=== PATIENT | female | born 1965 | race Caucasian/White ===

== ENCOUNTER 2017-01-05 11:43 | Emergency (ER) | payer OTHER, BC ==
[~2017-01-05 11:43] MED LIST: HYDR-971 PO; IBUP800T PO
[2017-01-05 11:50] VITALS: BP 162/105
[2017-01-05] MEDS ORDERED: CIPR500T94 PO (12:10)
[2017-01-05] MEDS ORDERED: HYDR-965 PO (12:10)
--- NOTE | 2017-01-05 12:13 | PHYS DOC ---
General Chief Complaint: ABDOMINAL PAIN Stated Complaint: abdominal pain Time Seen by MD: 11:44 Source: patient Exam Limitations: no limitations Problems: History of Present Illness Initial Comments Pt is 51/F to ED c/o abdominal pain. Pt states past few days left lower abdominal discomfort and loose stools. Has h /o diverticulitis, feels this is recurrance as sx are similar. No n/v, no travel/bad food, OTC meds not helping. No blood noted, no fever/chills/ malaise. Appetite intact. Timing/Duration: 1 week Severity: moderate Modifying Factors: improves with other Associated Symptoms: other Allergies: Coded Allergies: metronidazole (Verified Allergy, Intermediate, gi, 10/05/16) Past Medical History Medical History: other (diverticulitis, HSV, GERD, HTN) Surgical History: cholecystectomy, other (hysterectomy, TL) Social History Smoker: non-smoker Alcohol: none Drugs: none Review of Systems Constitutional: denies chills, denies diaphoresis, denies fever, denies malaise Respiratory: denies cough, denies shortness of breath Cardiovascular: denies chest pain, denies palpitations Gastrointestinal: abdominal paindenies constipation, diarrheadenies nausea, denies vomiting Genitourinary: see HPIdenies hematuria Musculoskeletal: denies joint swelling Psychiatric/Neurological: denies headache, denies numbness, denies paresthesia Physical Exam General Appearance: WD/WN, no apparent distress Ear, Nose, Throat: hearing grossly normal, normal ENT inspection Neck: non-tender, supple Respiratory: normal breath sounds, no respiratory distress Cardiovascular: normal peripheral pulses, regular rate, rhythm Gastrointestinal: normal bowel sounds, soft (ND, mild LLQ TTP no r/g/mass, neg mcburney/robles) Rectal: deferred Back: no CVA tenderness, no vertebral tenderness Extremities: non-tender, normal inspection 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 Departure Time of Disposition: 12:11 Disposition: 01 HOME, SELF-CARE Diagnosis: diverticulitis Condition: GOOD Patient Instructions: Diverticulitis, [id number] Additional Instructions: Please review the patient education material given by ED staff. Aggressive hydration with gatorade, water. Off work today/tomorrow. Rest, no strenuous activity. Rx: jonathan aguayo 7.5 #30 take meds with food. Follow up with your doctor in 2-3 days if no improvement. Return to ED with new or changing symptoms. TROY POSADA DO Jan 05, 2017 12:13
[2017-01-05] MEDS ORDERED: CIPROFLOXACIN HCL 500 MG TABLET PO ONE (12:15)
[2017-01-05 12:27] LABS: BILIRUBIN,URINE NEG (NEG); CLARITY,URINE CLEAR; COLOR,URINE YELLOW; GLUCOSE,URINE NEG (NEG)
[2017-01-05 12:28] LABS: BACTERIA,URINE FEW /HPF (0-FEW); NITRITE,URINE NEG (NEG); RBC,URINE 0 /HPF (0-2); SQUAMOUS EPITHELIAL CELL,UR MOD /LPF; UROBILINOGEN,URINE 0.2 mg/dL (0.2 mg/dL); WBC,URINE OCC /HPF (0-4)
== END 2017-01-05 12:20 ==
LOC: ER 11:43
DX: K57.92 Diverticulitis of intestine, part unspecified, without perforation or abscess without bleeding (principal); I10 Essential (primary) hypertension; K21.9 Gastro-esophageal reflux disease without esophagitis; Z90.49 Acquired absence of other specified parts of digestive tract; Z98.51 Tubal ligation status; Z88.8 Allergy status to other drugs, medicaments and biological substances
CPT/HCPCS: 81001; 99283

== ENCOUNTER → 2017-12-12 | Outpatient (CLI) | payer BC, OTHER ==
[~2017-12-12] MED LIST changes: +CIPR500T94 PO; +HYDR-965 PO; -IBUP800T PO; +IBUP800T19 PO
--- NOTE | 2017-12-12 11:34 | RAD ---
Indication: Postmenopausal. Hormone use. Technique: Bone mineral density DEXA scan Comparison: None Findings: The bone mineral density from L1-L4 measures 1.395 g/sq cm with T score of 1.8. Bone mineral density in the right femoral neck measures 0.997 g/sq cm with T score of -0.3. Impression: Normal bone mineral density at all measured sites.
--- NOTE | 2017-12-13 16:33 | RAD ---
DATE: 12/12/2017 EXAM: MAMMO JENNIE SCREENING BILATERAL HISTORY: Routine screening COMPARISON: 07/05/2016 This study was interpreted with the benefit of Computerized Aided Detection (CAD). The breast parenchyma shows scattered fibroglandular densities. Breast parenchyma level B. FINDINGS: 2-D and 3-D tomosynthesis imaging was performed in CC and MLO projections. No new or enlarging breast densities are seen. Several benign type calcifications are noted. No suspicious microcalcifications have developed. Benign-appearing lymph node type densities are again noted in the axillary regions. IMPRESSION: Stable mammograms without evidence of malignancy. BI-RADS CATEGORY: 2 BENIGN FINDING(S) RECOMMENDED FOLLOW-UP: 12M 12 MONTH FOLLOW-UP PQRS compliance statement: Patient information was entered into a reminder system with a target due date for the next mammogram. Mammography is a sensitive method for finding small breast cancers, but it does not detect them all and is not a substitute for careful clinical examination. A negative mammogram does not negate a clinically suspicious finding and should not result in delay in biopsying a clinically suspicious abnormality. "Our facility is accredited by the [employer] Mammography Program."
== END | disposition home or self-care (01) ==
LOC: DXRAD 10:19
PROVIDERS: ATTEND Obstetrics & Gynecology
DX: Z12.31 Encounter for screening mammogram for malignant neoplasm of breast (principal); Z13.820 Encounter for screening for osteoporosis; Z78.0 Asymptomatic menopausal state
CPT/HCPCS: 77063; 77067; 77080

== ENCOUNTER 2018-01-07 17:12 | Emergency (ER) | payer OTHER ==
[~2018-01-07] VITALS: Ht 160 cm; Wt 79.4 kg
--- NOTE | 2018-01-07 17:21 | EKG ---
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
[2018-01-07] MEDS ORDERED: MECLIZINE 12.5 MG TABLET. PO PRN (17:30)
--- NOTE | 2018-01-07 17:39 | PHYS DOC ---
Past History Past Medical History: GERD, Hypertension Past Surgical History: Cholecystectomy, Hysterectomy, Tubal ligation Alcohol Use: None Drug Use: None Adult General Chief Complaint Chief Complaint: CHEST PAIN [facility] HPI 52-year-old female patient with history of hypertension and GERD complaining of intermittent episodes of left-sided squeezing chest pain for the last 2 month that usually happens several times a day without sedation to activity. Patient stated the pain radiated to left shoulder and sometimes associated with shortness of breath. Patient rated her pain 7/10 and states the pain lasts about 2 minutes. She complaining of numbness her left hand during episodes of chest pain without palpitation, nausea and vomiting, fever and chills. Patient state for the last 1 week she had intermittent episodes of dizziness without related to activity or position. Patient denies fever and chills, URI symptoms, change of hearing, blurred vision. Patient states she has had intermittent episodes of headache for the last 1 week. Patient had some history of coronary artery disease and denies smoking and dyslipidemia and diabetes and history of previous coronary artery disease. Patient denies any chest pain at this time. Review of Systems Review of Systems Constitutional: Denies fever or chills [] Eyes: Denies change in visual acuity, redness, or eye pain [] HENT: Denies nasal congestion or sore throat [] Respiratory: Denies cough or shortness of breath [] Cardiovascular: No additional information not addressed in HPI [] GI: Denies abdominal pain, nausea, vomiting, bloody stools or diarrhea [] : Denies dysuria or hematuria [] Musculoskeletal: Denies back pain or joint pain [] Integument: Denies rash or skin lesions [] Neurologic: Reports headache and dizziness, denies focal weakness Endocrine: Denies polyuria or polydipsia [] All other systems were reviewed and found to be within normal limits, except as documented in this note. Allergies Allergies Allergies Coded Allergies Type Severity Reaction Last Updated Verified metronidazole Allergy Intermediate gi 10/05/16 Yes Physical Exam Physical Exam Constitutional: Well developed, well nourished, mild distress, non-toxic appearance. [] HENT: Normocephalic, atraumatic, bilateral external ears normal, oropharynx moist, no oral exudates, nose normal. [] Eyes: PERRLA, EOMI, conjunctiva normal, no discharge. [] Neck: Normal range of motion, no tenderness, supple, no stridor. [] Cardiovascular:Heart rate regular rhythm, no murmur [] Lungs & Thorax: Bilateral breath sounds clear to auscultation [] Abdomen: Bowel sounds normal, soft, no tenderness, no masses, no pulsatile masses. [] Skin: Warm, dry, no erythema, no rash. [] Back: No tenderness, no CVA tenderness. [] Extremities: No tenderness, no cyanosis, no clubbing, ROM intact, no edema. [] Neurologic: Alert and oriented X 3, normal motor function, normal sensory function, no focal deficits noted. [] Psychologic: Affect normal, judgement normal, mood normal. [] EKG EKG EKG interpreted by me. EKG at 1716 showed normal sinus rhythm at rate of 72, normal EKG without acute distress and T wave abnormalities[] Radiology/Procedures Radiology/Procedures [] Course & Med Decision Making Course & Med Decision Making Pertinent Labs and Imaging studies are pending. Evaluation of patient in ER showed 52-year-old female patient oriented to ER with complaining of intermittent episodes of chest pain for 2 months and intermittent episodes of dizziness and headache for one week. Patient had unremarkable physical exam and EKG. Labs and CT head is pending. Patient care transferred to at 1800. 1941: ED course: Patient was seen and evaluated by myself in the emergency room and patient was signed out to me by Dr. Ferguson for follow-up on lab results and CT findings. Patient's blood pressure is 170/100 and she still complaining of some mild dizziness and some left-sided chest pain. Patient's only cardiac risk factors are hypertension and obesity and age. Pt's HEART score =3. Given the patient's elevated blood pressure and persistent symptoms I recommended the patient be admitted the hospital for further evaluation and management. Patient did not want to be admitted to the hospital and would like to go home understanding all risks including and disability. I recommended giving the patient medication to help try and reduce her blood pressure I recommended repeating the troponin at approximately 3 hours from the first and I recommended obtaining a CTA of the chest to rule out PE or dissection. Patient was agreeable to this plan and we will reevaluate once the lab tests and radiology tests are done. 2037: Repeat EKG shows normal sinus rhythm rate 65 no STEMI 2125: Repeat troponin was unremarkable, this lab result was communicate with the patient who understands all risks including and disability and would like to go home. Patient has declined my offer for admission for serial troponins and EKGs. MDM: After reviewing the chart, CC/HPI/PMH, physical exam, [lab results], [ radiological results], I do not believe the patient having a STEMI, PE, thoracic aortic dissection. I did have concerns that since the patient still having persistent chest pain that she should be admitted the hospital for further cardiac workup however she declined admission under seen all risks which include but not limited to and disability. Patient went to go home and follow-up with her PCP as an outpatient. Additional verbal discharge instructions were provided to the patient and that if symptoms get worse or any new symptoms arise that are worrisome to the patient she is to return to the emergency room immediately Dragon Disclaimer Dragon Disclaimer This electronic medical record was generated, in whole or in part, using a voice recognition dictation system. Departure Departure: Impression: Primary Impression: Chest pain Additional Impression: Hypertension Disposition: 01 HOME, SELF-CARE Condition: STABLE Referrals: MABEL BERG MD (PCP) Patient Instructions: Chest Pain (Nonspecific) Additional Instructions: Please follow-up with your family physician in the next one to 2 days and return symptoms increase Problem Qualifiers PERNELL FERGUSON MD Jan 07, 2018 17:39 ANYI GUIDO DO Jan 07, 2018 19:46
[2018-01-07 18:06] LABS: BASO # 0.1 x10^3/uL (0.0-0.2); BASO % 1 % (0-3); EOS # 0.3 x10^3/uL (0.0-0.7); EOS % 3 % (0-3); HEMATOCRIT 41.1 % (36.0-47.0); HEMOGLOBIN 13.9 g/dL (12.0-15.5); LYMPH % 31 % (24-48); MEAN CORPUSCULAR HEMOGLOBIN 30 pg (25-35); MEAN CORPUSCULAR HGB CONC 34 g/dL (31-37); MEAN CORPUSCULAR VOLUME 89 fL (79-100); MONO # 1.1 x10^3/uL (0.0-1.1); MONO % 9 % (0-9); NEUT # 7.3 x10^3uL (1.8-7.7); NEUT % 57 % (31-73); PLATELET COUNT 343 x10^3/uL (140-400); RED BLOOD COUNT 4.64 x10^6/uL (3.50-5.40); RED CELL DISTRIBUTION WIDTH 13.9 % (11.5-14.5); WHITE BLOOD COUNT 12.8 x10^3/uL (4.0-11.0)
--- NOTE | 2018-01-07 18:08 | RAD ---
EXAM: Chest, single view. HISTORY: Chest pain. COMPARISON: None. FINDINGS: A frontal view of the chest is obtained. There is no infiltrate, effusion or pneumothorax. The heart is normal in size. IMPRESSION: No acute pulmonary finding. Electronically signed by: Tahira Song MD (01/07/2018 6:05 PM) [facility]
--- NOTE | 2018-01-07 18:09 | RAD ---
EXAM: Head CT without contrast. HISTORY: Dizziness. TECHNIQUE: Computed tomographic images of the head were obtained without contrast. *One or more of the following individualized dose reduction techniques were utilized for this examination: 1. Automated exposure control. 2. Adjustment of the mA and/or kV according to patient size. 3. Use of iterative reconstruction technique. COMPARISON: None. FINDINGS: There is no acute or subacute extra-axial or intraparenchymal hemorrhage. There is no mass effect or midline shift. There is no hydrocephalus. The kaufman-white matter differentiation pattern is intact. The visualized portions of the orbits, paranasal sinuses and mastoid air cells are unremarkable. No suspicious calvarial lesion is seen. There is a 1.0 cm incidental nodule within the right scalp, possibly a sebaceous cyst. IMPRESSION: No acute intracranial findings. Electronically signed by: Tahira Song MD (01/07/2018 6:06 PM) [facility]
[2018-01-07 18:29] LABS: ALBUMIN 3.2 g/dL (3.4-5.0); ALBUMIN/GLOBULIN RATIO 0.8 (1.0-1.7); ALK PHOS 72 U/L (46-116); ALT (SGPT) 20 U/L (14-59); ANION GAP 6 (6-14); AST (SGOT) 11 U/L (15-37); BLOOD UREA NITROGEN 17 mg/dL (7-20); BUN/CREATININE RATIO 21 (6-20); CALCIUM 8.7 mg/dL (8.5-10.1); CARBON DIOXIDE 31 mmol/L (21-32); CHLORIDE 103 mmol/L (98-107); CREATININE 0.8 mg/dL (0.6-1.0); GFR 75.9; GLUCOSE 102 mg/dL (70-99); MAGNESIUM 2.3 mg/dL (1.8-2.4); POTASSIUM 3.8 mmol/L (3.5-5.1); SODIUM 140 mmol/L (136-145); TOTAL BILIRUBIN 0.1 mg/dL (0.2-1.0); TOTAL PROTEIN 7.1 g/dL (6.4-8.2)
[2018-01-07] MEDS ORDERED: cloNIDine HCL 0.1 MG TABLET PO ONE (20:00)
[2018-01-07] MEDS ORDERED: CONTRAST GIVEN MC PRN (20:00)
[2018-01-07] MEDS ORDERED: IOHEXOL 300 MG/ML 75 ML VIAL. IV ONE (20:00)
--- NOTE | 2018-01-07 20:24 | RAD ---
EXAM: CT angiography of the chest with intravenous contrast. HISTORY: Pain. TECHNIQUE: Computed tomographic images of the chest were obtained following the administration of 75 cc Omnipaque 300 intravenous contrast according to angiography protocol. Multiplanar reformatting was performed and 3-dimensional maximum intensity projection images were obtained. *One or more of the following individualized dose reduction techniques were utilized for this examination: 1. Automated exposure control. 2. Adjustment of the mA and/or kV according to patient size. 3. Use of iterative reconstruction technique. COMPARISON: None. FINDINGS: There is no evidence of a pulmonary embolism. The heart is normal in size. The aorta is normal in caliber. No pathologically enlarged lymph node is seen. There is no pleural effusion or pneumothorax. There is posterior dependent and basilar atelectasis. There is no suspicious pulmonary nodule. There is a small hiatal hernia. The gallbladder is surgically absent. There is no suspicious osseous lesion. IMPRESSION: 1. No evidence of pulmonary embolism or alternative acute thoracic finding. 2. Small hiatal hernia. Electronically signed by: Tahira Song MD (01/07/2018 8:21 PM) [facility]
[2018-01-07 21:20] VITALS: BP 135/97
--- NOTE | 2018-01-08 14:03 | EKG ---
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
== END 2018-01-07 21:30 | disposition home or self-care (01) ==
LOC: ER 17:12
DX: R07.89 Other chest pain (principal); R51 Headache; I10 Essential (primary) hypertension; I25.10 Atherosclerotic heart disease of native coronary artery without angina pectoris; K21.9 Gastro-esophageal reflux disease without esophagitis; Z88.8 Allergy status to other drugs, medicaments and biological substances
CPT/HCPCS: 36415; 70450; 71045; 71275; 80053; 82553; 83735; 83880; 84484; 85025; 93005; 99285; J8597; Q9967

== ENCOUNTER → 2018-06-12 | Outpatient (CLI) | payer OTHER ==
[~2018-06-12] MED LIST changes: +IOHEXOL 240 MG/ML 50ML VIAL. PO ONE; +IOHEXOL 300 MG/ML 75 ML VIAL. IV ONE
--- NOTE | 2018-06-12 10:35 | RAD ---
CT abdomen and pelvis with contrast History: Pain all over for about one month Technique: After the administration of oral and intravenous contrast, CT imaging was performed of the abdomen and pelvis. Multiplanar images are reviewed. Exposure: One or more of the following individualized dose reduction techniques were utilized for this examination: 1. Automated exposure control 2. Adjustment of the mA and/or kV according to patient size 3. Use of iterative reconstruction technique. Contrast: 75 cc Omnipaque 300 Comparison: None Findings: There is no significant abnormality of the visualized lung bases. There is no significant abnormality of the liver, spleen, pancreas, adrenal glands. Both kidneys enhance without hydronephrosis. There is a hypodense lesion of the mid right kidney up to about 1.5 cm, internal density measurements greater than a simple cyst 38 Hounsfield units. There is also hypodense lesion of the mid to superior left kidney, density measurements of a simple cyst 12 Hounsfield units up to about 1 cm in size. There has been cholecystectomy. Bowel is not significantly dilated. There is mild scattered colonic diverticulosis greatest of the sigmoid colon without associated inflammatory type change. There is no free fluid or free air. There is retained stool greater of the ascending and transverse colon. Normal caliber appendix is identified, relatively short. There is probable mild wall enhancement of the terminal ileum, also wall thickening of the descending and transverse duodenum. Impression: 1. There is relatively wall enhancement of the terminal ileum and also duodenal wall thickening, evidence of enteritis. 2. There is mild colonic diverticulosis without evidence of diverticulitis. 3. There is a left renal cyst. There is indeterminate hypodense lesion of the right kidney for which ultrasound evaluation is recommended. Electronically signed by: Antonino Berrios MD (06/12/2018 10:32 AM) [facility]
== END | disposition home or self-care (01) ==
LOC: CT 08:16
PROVIDERS: ATTEND Internal Medicine Gastroenterology
DX: K57.30 Diverticulosis of large intestine without perforation or abscess without bleeding (principal); N28.1 Cyst of kidney, acquired; I10 Essential (primary) hypertension; M19.012 Primary osteoarthritis, left shoulder; I25.10 Atherosclerotic heart disease of native coronary artery without angina pectoris; K21.9 Gastro-esophageal reflux disease without esophagitis; Z90.49 Acquired absence of other specified parts of digestive tract
CPT/HCPCS: 74177; Q9966; Q9967

== ENCOUNTER → 2018-08-14 | Outpatient (CLI) | payer OTHER ==
[~2018-08-14] MED LIST changes: +HYDR-3165 PO; +HYDR-3166 PO; -HYDR-965 PO; -HYDR-971 PO; -IOHEXOL 240 MG/ML 50ML VIAL. PO ONE; -IOHEXOL 300 MG/ML 75 ML VIAL. IV ONE
--- NOTE | 2018-08-14 11:21 | RAD ---
Chest, 2 views, 08/14/2018: HISTORY: Cough Comparison is made to a study from 01/07/2018. The heart size and pulmonary vascularity are normal. No pulmonary infiltrate is seen. There is no evidence of pleural fluid. Mild scattered spurs are present in the spine. IMPRESSION: No acute cardiopulmonary abnormality is detected. Electronically signed by: Juan Francisco Stone MD (08/14/2018 11:18 AM) [facility]
== END | disposition home or self-care (01) ==
LOC: RAD 10:52
PROVIDERS: ATTEND Internal Medicine Gastroenterology
DX: R05 Cough (principal); M46.04 Spinal enthesopathy, thoracic region
CPT/HCPCS: 71046

== ENCOUNTER 2018-08-27 21:32 | Inpatient (IN) | payer OTHER ==
[~2018-08-27] VITALS: Ht 160 cm; Wt 70.1 kg
[2018-08-27] MEDS ORDERED: PANTOPRAZOLE IV 40 MG VIAL. IVP ONE (22:30)
[2018-08-27] MEDS ORDERED: IV NORMAL SALINE 1,000ML 1,000 ML IV ONE (22:30)
[2018-08-27] MEDS ORDERED: ONDANSETRON PF 4 MG/2 ML VIAL. IV ONE (22:30)
[2018-08-27] MEDS ORDERED: FAMOTIDINE 20 MG/2 ML VIAL IVP ONE (22:30)
--- NOTE | 2018-08-27 22:30 | PHYS DOC ---
Past History Past Medical History: Diverticulitis, Hypertension Past Surgical History: Colectomy, Hysterectomy Alcohol Use: None Drug Use: None Adult General Chief Complaint Chief Complaint: NAUSEA/VOMITING/DIARRHEA HPI HPI 53-year-old female presents with abdominal pain and vomiting. The patient was eating lunch she started to feel abdominal cramping and nausea. She went home. After she got home she vomited. She's had 5 episodes of vomiting. The last one was a few hours ago. It was nonbilious and nonbloody. After she started vomiting , she has had periumbilical abdominal cramping. She has not had any diarrhea. She thought she might have had a fever at home but did not measure one. She has taken Tylenol and her chills have improved. She has no known sick contacts. Patient has a history of IBS, GERD and esophagitis. Review of Systems Review of Systems Constitutional: chills [] Eyes: Denies change in visual acuity, redness, or eye pain [] HENT: Denies nasal congestion or sore throat [] Respiratory: Denies cough or shortness of breath [] Cardiovascular: No additional information not addressed in HPI [] GI: Abdominal pain, vomiting[] : Denies dysuria or hematuria [] Musculoskeletal: Denies back pain or joint pain [] Integument: Denies rash or skin lesions [] Neurologic: Denies headache, focal weakness or sensory changes [] Endocrine: Denies polyuria or polydipsia [] All other systems were reviewed and found to be within normal limits, except as documented in this note. Current Medications Current Medications Current Medications Medications (Trade) Dose Ordered Sig/Esthela Start Time Stop Time Status Last Admin Dose Admin Ondansetron HCl (Zofran) 4 mg 1X ONCE 08/27/18 22:30 08/27/18 22:31 Sodium Chloride 1,000 ml @ 1,000 mls/hr 1X ONCE 08/27/18 22:30 08/27/18 23:29 Allergies Allergies Allergies Coded Allergies Type Severity Reaction Last Updated Verified metronidazole Allergy Intermediate gi 10/05/16 Yes Physical Exam Physical Exam Constitutional: Well developed, well nourished, no acute distress, non-toxic appearance. [] HENT: Normocephalic, atraumatic, bilateral external ears normal, oropharynx moist, no oral exudates, nose normal. [] Eyes: PERRLA, EOMI, conjunctiva normal, no discharge. [] Neck: Normal range of motion, no tenderness, supple, no stridor. [] Cardiovascular:Heart rate regular rhythm, no murmur [] Lungs & Thorax: Bilateral breath sounds clear to auscultation [] Abdomen: Bowel sounds normal, soft, diffuse mild tenderness[] Skin: Warm, dry, no erythema, no rash. [] Back: No tenderness, no CVA tenderness. [] Extremities: No tenderness, no cyanosis, no clubbing, ROM intact, no edema. [] Neurologic: Alert and oriented X 3, normal motor function, normal sensory function, no focal deficits noted. [] Psychologic: Affect normal, judgement normal, mood normal. [] Current Patient Data Vital Signs Vital Signs Date Time Temp Pulse Resp B/P (MAP) Pulse Ox O2 Delivery O2 Flow Rate FiO2 08/27/18 21:41 98.4 108 20 97 Room Air EKG EKG [] Radiology/Procedures Radiology/Procedures [] Impressions: Indication: Abdominal pain TECHNIQUE: 2 views of the abdomen and pelvis COMPARISON: None FINDINGS: No abnormally dilated bowel loops. Moderate diffuse colonic stool burden. Visualized bones are within normal limits. No abnormal calcific densities projecting over the expected location of the kidneys. Right upper quadrant clips suggesting cholecystectomy. IMPRESSION: Moderate colonic stool burden. No radiographic evidence of small bowel obstruction. Electronically signed by: Nathan Dolan DO (08/27/2018 10:56 PM) [facility] DICTATED AND SIGNED BY: NATHAN DOLAN DO DATE: 08/27/18 8088 CC: ELAINE BRAVO DO; MABEL BERG MD ~ Course & Med Decision Making Course & Med Decision Making Pertinent Labs and Imaging studies reviewed. (See chart for details) The patient's labs are significant for potassium of 3.0. She does not have an elevated white count but does have elevated neutrophils. Urine is still pending. Her KUB does not show evidence of obstruction, but does show moderate stool burden. It's possible the patient's discomfort is related to her constipation. On reexamination, the patient is having some bilateral hand contractures. Her fingers are very stiff to spread apart. The patient is very concerned by this. Given that her potassium is 3.0 already, it is likely it is decreasing due to her vomiting. I will replace her potassium by IV and admit her to the hospital for further observation and management. I discussed the case with Dr. Johnson and he has accepted the patient for admission. Dragon Disclaimer Dragon Disclaimer This electronic medical record was generated, in whole or in part, using a voice recognition dictation system. Departure Departure: Referrals: MABEL BERG MD (PCP) ELAINE BRAVO DO Aug 27, 2018 22:30
[2018-08-27 22:32] LABS: BASO # 0.1 x10^3/uL (0.0-0.2); BASO % 1 % (0-3); EOS % 0 % (0-3); HEMATOCRIT 43.6 % (36.0-47.0); HEMOGLOBIN 14.9 g/dL (12.0-15.5); LYMPH # 0.4 x10^3/uL (1.0-4.8); LYMPH % 5 % (24-48); MEAN CORPUSCULAR HEMOGLOBIN 29 pg (25-35); MEAN CORPUSCULAR HGB CONC 34 g/dL (31-37); MEAN CORPUSCULAR VOLUME 85 fL (79-100); MONO # 0.2 x10^3/uL (0.0-1.1); MONO % 3 % (0-9); NEUT # 8.3 x10^3uL (1.8-7.7); NEUT % 92 % (31-73); PLATELET COUNT 333 x10^3/uL (140-400); RED BLOOD COUNT 5.14 x10^6/uL (3.50-5.40); RED CELL DISTRIBUTION WIDTH 13.2 % (11.5-14.5)
[2018-08-27 22:43] LABS: ALBUMIN 3.2 g/dL (3.4-5.0); ALBUMIN/GLOBULIN RATIO 0.8 (1.0-1.7); CALCIUM 8.1 mg/dL (8.5-10.1); CREATININE 0.9 mg/dL (0.6-1.0); TOTAL BILIRUBIN 0.5 mg/dL (0.2-1.0); TOTAL PROTEIN 7.2 g/dL (6.4-8.2)
[2018-08-27] MEDS ORDERED: LORazepam 2 MG/ML VIAL ONE (22:46)
[2018-08-27] MEDS ORDERED: LORazepam 2 MG/ML VIAL IV ONE (23:00)
--- NOTE | 2018-08-27 23:00 | RAD ---
Indication: Abdominal pain TECHNIQUE: 2 views of the abdomen and pelvis COMPARISON: None FINDINGS: No abnormally dilated bowel loops. Moderate diffuse colonic stool burden. Visualized bones are within normal limits. No abnormal calcific densities projecting over the expected location of the kidneys. Right upper quadrant clips suggesting cholecystectomy. IMPRESSION: Moderate colonic stool burden. No radiographic evidence of small bowel obstruction. Electronically signed by: Nathan Dolan DO (08/27/2018 10:56 PM) [facility]
[2018-08-27] MEDS ORDERED: POTASSIUM CL 40MEQ IN 0.9%NACL 1,000 ML IV ONE (23:45)
[2018-08-27] MEDS ORDERED: ONDANSETRON PF 4 MG/2 ML VIAL. IV PRN (23:45)
[2018-08-27] MEDS ORDERED: MORPHINE SULFATE 2 MG/ML DISP.SYRIN. IV PRN (23:45)
[2018-08-28 00:26] LABS: BACTERIA,URINE 0 /HPF (0-FEW); BILIRUBIN,URINE NEG (NEG); CLARITY,URINE CLEAR; COLOR,URINE YELLOW; GLUCOSE,URINE NEG (NEG); NITRITE,URINE NEG (NEG); RBC,URINE 0 /HPF (0-2); SQUAMOUS EPITHELIAL CELL,UR MANY /LPF; UROBILINOGEN,URINE 0.2 mg/dL (0.2 mg/dL); WBC,URINE OCC /HPF (0-4)
[2018-08-28 00:30] VITALS: BP 115/79
--- NOTE | 2018-08-28 02:55 | EKG ---
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
[2018-08-28] MEDS ORDERED: HYDR25TA10 PO (04:00)
[2018-08-28] MEDS ORDERED: ESTR2TAB PO (04:00)
[2018-08-28] MEDS ORDERED: OMEP40CA5 PO (04:00)
[2018-08-28] MEDS ORDERED: OXYB10TA PO (04:00)
[2018-08-28] MEDS ORDERED: ACYC800T PO (04:00)
[2018-08-28] MEDS ORDERED: MELA3TAB2 PO (04:00)
[2018-08-28 05:35] VITALS: BP 115/114
[2018-08-28 05:55] LABS: CALCIUM 6.8 mg/dL (8.5-10.1); CREATININE 0.9 mg/dL (0.6-1.0); POTASSIUM 3.4 mmol/L (3.5-5.1)
[2018-08-28] MEDS ORDERED: POTASSIUM CHLORIDE 20 MEQ TABLET.ER. PO ONE (08:30)
[2018-08-28] MEDS: ACYCLOVIR 200 MG CAPSULE PO SCH (08:57)
[2018-08-28] MEDS: ESTRADIOL 1 MG TABLET PO SCH (08:57)
[2018-08-28] MEDS: OXYBUTYNIN CHLORIDE 5 MG TABLET PO SCH (08:57)
[2018-08-28] MEDS: PANTOPRAZOLE 40 MG TABLET. PO SCH (08:57)
[2018-08-28] MEDS ORDERED: hydroCHLOROthiazide 25 MG TABLET PO SCH (09:00)
[2018-08-28 10:37] VITALS: BP 105/71
[2018-08-28] MEDS: ACETAMINOPHEN 325 MG TABLET PO PRN ×2 (14:05→21:03)
[2018-08-28 14:21] VITALS: BP 106/72
[2018-08-28] MEDS ORDERED: IOHEXOL 240 MG/ML 50ML VIAL. ONE (15:41)
[2018-08-28] MEDS ORDERED: IOHEXOL 300 MG/ML 75 ML VIAL. IV ONE (16:00)
[2018-08-28 16:04] LABS: CALCIUM 7.5 mg/dL (8.5-10.1); CREATININE 0.9 mg/dL (0.6-1.0); POTASSIUM 3.5 mmol/L (3.5-5.1)
[2018-08-28] MEDS: POTASSIUM CL 40MEQ D5-0.45NACL 1,000 ML IV SCH (16:43)
--- NOTE | 2018-08-28 17:38 | RAD ---
PQRS Compliance statement: One or more of the following individualized dose reduction techniques were utilized for this examination: 1. Automated exposure control. 2. Adjustment of the mA and/or kV according to patient size. 3. Use of iterative reconstruction technique. Indication:LLQ ABDOMINAL PAIN WITH NAUSEA/VOMITING. ORAL AND 75MLS OMNI 300 IV CONTRAST TECHNIQUE: CT abdomen and pelvis with IV contrast with multiplanar reformats. COMPARISON: 06/12/2018 FINDINGS: Heart is normal in size. No pericardial or pleural effusion. Clear lung bases. Liver, spleen, pancreas, adrenals within normal limits. Status post cholecystectomy. Bilateral low attenuating lesions are seen in the kidneys, on the right side measuring 1.8 cm and on the left side measuring 1.0 cm most likely simple cysts. No nephrolithiasis or hydronephrosis. No enlarged retroperitoneal or pelvic adenopathy. No free pelvic fluid or ascites. Small sliding hiatal hernia. No bowel obstruction. Mild sigmoid diverticulosis. Normal appendix. Status post cholecystectomy. Urinary bladder is within normal limits. No pneumoperitoneum. No suspicious bony lesion. IMPRESSION: 1. No bowel obstruction. 2. Small sliding hiatal hernia. Electronically signed by: Nathan Dolan DO (08/28/2018 5:34 PM) [facility]
[2018-08-28 20:41] VITALS: BP 109/76
[2018-08-28] MEDS ORDERED: MELATONIN 3 MG TABLET PO SCH (21:00)
--- NOTE | 2018-08-29 01:49 | PN ---
DATE: 08/28/2018 SUBJECTIVE: The patient is resting, slightly propped up in bed, continued to feel generally unwell, markedly flushed. She has no more episodes of nausea or vomiting. Continued to have abdominal pain, mostly in the left lower quadrant. PHYSICAL EXAMINATION: GENERAL: When I examined her this afternoon, she was definitely flushed, but no jaundice, cyanosis or thyromegaly. No jugular venous distention. No lower limb edema. VITAL SIGNS: Her heart rate was 96, blood pressure was 106/72, temperature was 98.7, respiratory rate 20 and oxygen saturation was 93%. HEAD, EYES, EARS, NOSE AND THROAT: Normocephalic, atraumatic. NECK: Supple. CARDIAC: Normal first and second sounds. No gallop, rub or murmur. CHEST: Clear to auscultation. No crepitation or rhonchi. ABDOMEN: Distended, soft with tenderness mostly in the left lower quadrant. No guarding or rigidity. No organomegaly. All hernial orifices intact. Bowel sounds normal. NEUROLOGIC: She was awake, alert, responding appropriately. Cranial nerves are intact. She moves extremities without difficulty. She ambulates without assistance or assistive devices. Her intake was at 2000, no output was recorded. LABORATORY DATA: Still pending at the time of this dictation. IMPRESSION: So, in summary, the patient has recurrent bouts of nausea, vomiting that apparently subsided, but the patient continued to be flushed, generally feeling unwell, dizzy and continued to have abdominal pain. She has a history of diverticulitis before. PLAN: My plan is to repeat her lab work this afternoon and also continue with IV fluid, put her back on a clear liquid diet, do CT scan of the abdomen and pelvis, and decide on further management accordingly. FARHEEN HAINES MD DR: RANDY/leti JOB#: [id number] / [id number]
[2018-08-29] MEDS: ACETAMINOPHEN 325 MG TABLET PO PRN (05:43)
[2018-08-29] MEDS: POTASSIUM CL 40MEQ D5-0.45NACL 1,000 ML IV SCH (05:43)
[2018-08-29 05:50] VITALS: BP 110/77
--- NOTE | 2018-08-29 07:20 | HP ---
ADMIT DATE: 08/28/2018 HISTORY OF PRESENT ILLNESS: The patient is a 53-year-old female patient who came to the Emergency Room with a complaint of nausea, vomiting and abdominal pain. The patient was eating lunch and she started to feel abdominal cramping and nausea. She went home, after she gets home she vomited. She has had 5 episodes of vomiting, the last one was last few hours, was about 6 o'clock in the afternoon, it was nonbilious and nonbloody. After she started vomiting, she has had periumbilical abdominal cramping. She has not had any diarrhea. She thought she might have had a fever at home, but did not measure one. She has taken Tylenol and her chills have improved. She has no known sick contacts. The patient has history of irritable bowel syndrome, gastroesophageal reflux disease and esophagitis. She was investigated in the Emergency Room. Her KUB showed moderate colonic stool burden. No radiographic evidence for small-bowel obstruction. Chemistry, her white cell count was normal at 9000 as well as hemoglobin and hematocrit. Her chemistry was essentially normal except for hypokalemia with a serum potassium of 3. Urinalysis was essentially unremarkable. She was admitted, started on D5 half normal with 20 mEq of potassium chloride. Continued on her other medications. PAST MEDICAL HISTORY: Significant for history of diverticulitis, gastroesophageal reflux disease, eosinophilic gastritis and hiatal hernia. She has gluten intolerance. PAST SURGICAL HISTORY: Significant for cholecystectomy, hysterectomy, hernia repair. She has also multiple esophagogastroduodenoscopy with the stomach polypectomy as well as colonoscopy and polypectomy. ALLERGIES: SHE IS ALLERGIC TO FLAGYL. MEDICATIONS: She is currently on acyclovir 800 mg tablet once a day, ibuprofen 800 mg 3 times a day as needed, hydrocodone/APAP 5/325 one tablet every 6 hours, hydrochlorothiazide 25 mg once a day, omeprazole 40 mg once a day, estradiol 2 mg tablet daily, oxybutynin chloride 5 mg daily and melatonin 3 mg daily at bedtime. FAMILY HISTORY: She has one sister, younger and healthy. Her father is alive at age of 79. Mother alive at the age of 73 and she is known to have diabetes and myocardial infarction. SOCIAL HISTORY: She is , has 3 boys. He never smoked. Drinks alcohol very occasionally. 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 REVIEW OF SYSTEMS: The patient denied any blurring of vision, cataract, glaucoma or macular degeneration. Denied any earache, tinnitus or sensorineural deafness. Denied any nosebleeds, stuffy nose or postnasal drip. Denied any sore throat, sore tongue, toothache, hoarseness of voice or difficulty swallowing. Did complain of nausea and vomiting. Denied any diarrhea. Did complain of abdominal pain. Denied any hematemesis, melena, hematochezia. Denied any dysuria, frequency, hematuria. Denied chest pain, shortness of breath, orthopnea, or paroxysmal nocturnal dyspnea. Denied any cough, phlegm or hemoptysis. PHYSICAL EXAMINATION: GENERAL: On arrival to the Emergency Room, she was somewhat flushed, no jaundice, cyanosis, or thyromegaly. No jugular venous distension. No limb edema. VITAL SIGNS: His heart rate was 108, blood pressure was 127/79, temperature was 98.4, respiratory rate 20, and oxygen saturation was 97%. HEAD, EYES, NOSE AND THROAT: Showed normocephalic, atraumatic. NECK: Supple. HEART: Showed normal first and second heart sounds. No gallop, rub or murmur. CHEST: Clear to auscultation. No crepitation or rhonchi. ABDOMEN: Distended, soft and nontender. The abdomen was diffusely tender mostly in the right and left upper quadrant as well as epigastric area. No tenderness. No guarding or rigidity. No organomegaly. Hernial orifice intact. Bowel sounds normal. NEUROLOGIC: She is awake, alert, responding appropriately. Cranial nerves intact. EXTREMITIES: She moves extremities without difficulty. LABORATORY DATA: Lab works showed a white cell count of 9000, hemoglobin 14.9, hematocrit 43.6, MCV 85 and platelet count of 333,000 with normal manual differential. His chemistry showed a serum sodium 139, potassium 3, chloride 100, bicarbonate 24, anion gap of 15, BUN 17, creatinine 0.9, estimated GFR was 66 mL per minute. Her glucose 135, calcium was 8.1, magnesium 2. Total bilirubin, AST, ALT, alkaline phosphatase were normal. Total protein was 7.2, albumin 3.2. Lipase was 119. Urinalysis was essentially unremarkable. The patient was admitted, continued on IV fluids, potassium supplement. Continue antiemetic as well as Protonix. She did have her lab work done early this morning, which showed that her serum sodium was up to 141, potassium up to 3.4, chloride 106, bicarbonate 25, anion gap of 10, BUN 13, creatinine 0.9, estimated GFR was 66 mL per minute. Her glucose was 105 and calcium was 6.8. FARHEEN HAINES MD DR: RANDY/leti JOB#: [id number] / [id number]
[2018-08-29 08:08] LABS: CALCIUM 7.7 mg/dL (8.5-10.1); CREATININE 0.9 mg/dL (0.6-1.0); POTASSIUM 3.9 mmol/L (3.5-5.1)
[2018-08-29] MEDS: ESTRADIOL 1 MG TABLET PO SCH (08:23)
[2018-08-29] MEDS: ACYCLOVIR 200 MG CAPSULE PO SCH (08:24)
[2018-08-29] MEDS: PANTOPRAZOLE 40 MG TABLET. PO SCH (08:24)
[2018-08-29] MEDS: OXYBUTYNIN CHLORIDE 5 MG TABLET PO SCH (08:24)
[2018-08-29 10:50] VITALS: BP 116/83
[2018-08-29 15:13] VITALS: BP 126/86
--- NOTE | 2018-09-04 12:06 | DS ---
DATE OF DISCHARGE: 08/29/2018 HOSPITAL COURSE: The patient is a 53-year-old female patient, who was admitted with recurrent bouts of nausea, vomiting, and abdominal cramping. She was started on IV fluid and antiemetics and pain medication and did well. We started her initially on a clear liquid diet, was advanced as tolerated. I did do a CT scan of the abdomen and pelvis, which showed no bowel obstruction, a small sliding hiatal hernia and as she remained hemodynamically stable and afebrile, tolerating her regular diet. A decision was made to discharge her home to continue on her regular medications and to follow with her primary care physician. PHYSICAL EXAMINATION: GENERAL: When I saw her on the day of discharge, she looked well and was clearly in no apparent respiratory distress. No pallor, jaundice, cyanosis, or thyromegaly. No jugular venous distension. No limb edema. VITAL SIGNS: Her heart rate was 68, blood pressure was 126/86, temperature was 98.1, respiratory rate was 18 and oxygen saturation was 100% on room air. HEAD, EYES, EARS, NOSE AND THROAT: Normocephalic, atraumatic. NECK: Supple. HEART: Showed normal first and second heart sounds with no gallop, rub or murmur. CHEST: Clear to auscultation. No crepitation or rhonchi. ABDOMEN: Distended, soft, nontender. NEUROLOGIC: She is awake, alert, responding appropriately. All cranial nerves intact. EXTREMITIES: She moves extremities without difficulty. She ambulates without assistance or assistive devices. LABORATORY DATA: White cell count was 9000, hemoglobin 15, hematocrit 44, MCV 85 and platelet count of 333,000. Her most recent chemistry showed a serum sodium 141, potassium 3.9, chloride 106, bicarbonate 26, anion gap of 9, BUN 7, creatinine 0.9, estimated GFR was 66 mL per minute. Her glucose was 111 and calcium was 7.7. DISCHARGE MEDICATIONS: She was discharged home to continue on her Acyclovir 800 mg daily, estradiol 2 mg daily, hydrochlorothiazide 25 mg once a day, hydrocodone/APAP 5/325 one tablet every 6 hours, ibuprofen 800 mg 3 times a day as needed, melatonin 3 mg at bedtime, omeprazole 40 mg once a day and oxybutynin chloride 5 mg once a day. FINAL DISCHARGE DIAGNOSES: Acute gastroenteritis, resolved. The patient is known to have gastroesophageal reflux disease, eosinophilic gastroenteritis, history of diverticulitis, hiatal hernia, and Gluten intolerance. FARHEEN HAINES MD DR: RANDY/leti JOB#: [id number] / [id number]
== END 2018-08-29 15:50 | disposition home or self-care (01) | DRG 392 ==
LOC: ER 21:32 → 1 SOUTH 23:24
PROVIDERS: ADMIT Internal Medicine; ATTEND Internal Medicine
DX: K52.9 Noninfective gastroenteritis and colitis, unspecified (principal); E87.6 Hypokalemia; I10 Essential (primary) hypertension; K21.9 Gastro-esophageal reflux disease without esophagitis; Z82.49 Family history of ischemic heart disease and other diseases of the circulatory system; Z83.3 Family history of diabetes mellitus; Z90.710 Acquired absence of both cervix and uterus; Z79.899 Other long term (current) drug therapy; Z88.8 Allergy status to other drugs, medicaments and biological substances; Z90.49 Acquired absence of other specified parts of digestive tract; K52.81 Eosinophilic gastritis or gastroenteritis; K44.9 Diaphragmatic hernia without obstruction or gangrene
CPT/HCPCS: 36415; 74018; 74177; 80048; 80053; 81001; 83690; 83735; 85025; 93005; 96361; 96374; 96375; C9113; J2060; J2405; J3490; J7042; Q9967; 99285-25; J7030

== ENCOUNTER → 2018-09-12 | Outpatient (CLI) | payer OTHER ==
[2018-08-29 15:13] VITALS: BP 126/86
[~2018-09-12] MED LIST changes: +ACYC800T PO; +ESTR2TAB PO; +HYDR25TA10 PO; +MELA3TAB2 PO; +OMEP40CA5 PO; +OXYB10TA PO
[2018-09-12 09:28] LABS: BASO # 0.1 x10^3/uL (0.0-0.2); BASO % 1 % (0-3); EOS # 0.2 x10^3/uL (0.0-0.7); EOS % 2 % (0-3); HEMATOCRIT 42.7 % (36.0-47.0); HEMOGLOBIN 14.4 g/dL (12.0-15.5); LYMPH # 2.4 x10^3/uL (1.0-4.8); LYMPH % 33 % (24-48); MEAN CORPUSCULAR HEMOGLOBIN 29 pg (25-35); MEAN CORPUSCULAR HGB CONC 34 g/dL (31-37); MEAN CORPUSCULAR VOLUME 86 fL (79-100); MONO # 0.5 x10^3/uL (0.0-1.1); MONO % 7 % (0-9); NEUT # 4.1 x10^3uL (1.8-7.7); NEUT % 57 % (31-73); PLATELET COUNT 341 x10^3/uL (140-400); RED BLOOD COUNT 4.96 x10^6/uL (3.50-5.40); RED CELL DISTRIBUTION WIDTH 13.3 % (11.5-14.5); WHITE BLOOD COUNT 7.2 x10^3/uL (4.0-11.0)
[2018-09-12 09:47] LABS: ALBUMIN 3.3 g/dL (3.4-5.0); ALBUMIN/GLOBULIN RATIO 0.9 (1.0-1.7); CREATININE 0.9 mg/dL (0.6-1.0); TOTAL BILIRUBIN 0.5 mg/dL (0.2-1.0)
[2018-09-12 18:28] LABS: THYROID STIM HORMONE (TSH) 1.727 uIU/mL (0.358-3.740)
[2018-09-12 20:12] LABS: HEMOGLOBIN A1C 5.3 % (4.8-5.6)
[2018-09-15 00:07] LABS: ALTERNARIA <0.10 kU/L (Class 0); ASH <0.10 kU/L (Class 0); ASPERGILLUS <0.10 kU/L (Class 0); BERMUDA <0.10 kU/L (Class 0); CAT DANDER <0.10 kU/L (Class 0); CLADOSPORIUM <0.10 kU/L (Class 0); COCKROACH <0.10 kU/L (Class 0); CODFISH <0.10 kU/L (Class 0); CORN <0.10 kU/L (Class 0); COTTONWOOD <0.10 kU/L (Class 0); DOG DANDER <0.10 kU/L (Class 0); DUST MITE <0.10 kU/L (Class 0); EGG WHITE <0.10 kU/L (Class 0); ELM <0.10 kU/L (Class 0); MAPLE <0.10 kU/L (Class 0); MILK <0.10 kU/L (Class 0); MOUNTAIN CEDAR <0.10 kU/L (Class 0); MULBERRY <0.10 kU/L (Class 0); NETTLE <0.10 kU/L (Class 0); OAK TREE <0.10 kU/L (Class 0); PEANUT <0.10 kU/L (Class 0); PENICILLIUM <0.10 kU/L (Class 0); RAST IGE 14 IU/mL (0-100); RUSSIAN THISTLE <0.10 kU/L (Class 0); SHEEP SORREL <0.10 kU/L (Class 0); SHORT RAGWEED <0.10 kU/L (Class 0); SHRIMP <0.10 kU/L (Class 0); SOYBEAN <0.10 kU/L (Class 0); TIMOTHY GRASS <0.10 kU/L (Class 0); WALNUT <0.10 kU/L (Class 0); WHEAT <0.10 kU/L (Class 0)
[2018-09-16 12:10] LABS: GLIA IGA 5 units (0-19); GLIA IGG 3 units (0-19); TRANSGLUTAMINASE IGA AB <2 U/mL (0-3); TRANSGLUTAMINASE IGG AB <2 U/mL (0-5)
== END | disposition home or self-care (01) ==
LOC: LAB 08:15
PROVIDERS: ATTEND Nurse Practitioner
DX: Z13.1 Encounter for screening for diabetes mellitus (principal); Z13.220 Encounter for screening for lipoid disorders; E87.6 Hypokalemia; R10.9 Unspecified abdominal pain; K52.9 Noninfective gastroenteritis and colitis, unspecified; Z68.28 Body mass index [BMI] 28.0-28.9, adult
CPT/HCPCS: 36415; 80053; 80061; 82784; 83036; 83516; 84443; 85025; 86001

== ENCOUNTER → 2019-01-02 | Outpatient (CLI) | payer OTHER ==
--- NOTE | 2019-01-02 08:36 | RAD ---
3 views right shoulder 01/02/2019 12:00 AM Indication: RIGHT SHOULDER PAIN X2 WEEKS. Comparison: None Findings: There is no acute fracture or dislocation. Articular surfaces are uninterupted and smooth. Soft tissues are unremarkable. Impression: No evidence of acute osseous abnormality. Electronically signed by: Jared Skelton MD (01/02/2019 8:33 AM) [id number]
[2019-01-02 08:52] LABS: BASO % 1 % (0-3); EOS # 0.1 x10^3/uL (0.0-0.7); EOS % 2 % (0-3); HEMATOCRIT 43.3 % (36.0-47.0); HEMOGLOBIN 14.7 g/dL (12.0-15.5); LYMPH # 2.5 x10^3/uL (1.0-4.8); LYMPH % 34 % (24-48); MEAN CORPUSCULAR HEMOGLOBIN 30 pg (25-35); MEAN CORPUSCULAR HGB CONC 34 g/dL (31-37); MEAN CORPUSCULAR VOLUME 89 fL (79-100); MONO # 0.5 x10^3/uL (0.0-1.1); MONO % 7 % (0-9); NEUT # 4.1 x10^3uL (1.8-7.7); NEUT % 57 % (31-73); PLATELET COUNT 302 x10^3/uL (140-400); RED BLOOD COUNT 4.88 x10^6/uL (3.50-5.40); RED CELL DISTRIBUTION WIDTH 13.8 % (11.5-14.5); WHITE BLOOD COUNT 7.2 x10^3/uL (4.0-11.0)
[2019-01-02 09:02] LABS: ALBUMIN 3.4 g/dL (3.4-5.0); ALBUMIN/GLOBULIN RATIO 0.9 (1.0-1.7); C REACTIVE PROTEIN 2.6 mg/L (0-3.3); CALCIUM 9.2 mg/dL (8.5-10.1); CREATININE 0.9 mg/dL (0.6-1.0); POTASSIUM 3.9 mmol/L (3.5-5.1); TOTAL BILIRUBIN 0.3 mg/dL (0.2-1.0); TOTAL PROTEIN 7.3 g/dL (6.4-8.2)
[2019-01-02 16:08] LABS: RHEUMATOID FACTOR <10.0 IU/mL (0.0-13.9)
[2019-01-07 17:11] LABS: ANA INTERP Negative (.)
== END | disposition home or self-care (01) ==
LOC: RAD 07:39
PROVIDERS: ATTEND Nurse Practitioner
DX: M25.511 Pain in right shoulder (principal)
CPT/HCPCS: 36415; 73030; 80053; 85025; 86038; 86140; 86431

== ENCOUNTER → 2019-06-20 | Outpatient (CLI) | payer OTHER ==
[~2019-06-20] MED LIST changes: -MELA3TAB2 PO; +MELA3TAB56 PO; +OMEP40CA45 PO; -OMEP40CA5 PO; -OXYB10TA PO; +OXYB10TA2 PO
--- NOTE | 2019-06-20 08:03 | EKG ---
[address] [address] Test Date: 2019-06-20 Test Time: 07:52:37 Pat Name: ANDREA WHITE Department: Room: Gender: F [employer] Professional: DAYRON : 1965 Requested By: ROSIE VELEZ Order Number: [id number] Reading MD: Measurements Intervals [place] Rate: 74 P: 0 LA: 140 QRS: 5 QRSD: 80 T: 11 QT: 400 QTc: 444 Interpretive Statements SINUS RHYTHM QRS(T) CONTOUR ABNORMALITY CONSIDER ANTEROSEPTAL MYOCARDIAL DAMAGE POSSIBLY ABNORMAL ECG RI6.01 No previous ECG available for comparison
[2019-06-20 08:54] LABS: BASO # 0.1 x10^3/uL (0.0-0.2); BASO % 1 % (0-3); EOS # 0.2 x10^3/uL (0.0-0.7); EOS % 2 % (0-3); HEMATOCRIT 42.6 % (36.0-47.0); HEMOGLOBIN 14.8 g/dL (12.0-15.5); LYMPH # 2.9 x10^3/uL (1.0-4.8); LYMPH % 37 % (24-48); MEAN CORPUSCULAR HEMOGLOBIN 32 pg (25-35); MEAN CORPUSCULAR HGB CONC 35 g/dL (31-37); MEAN CORPUSCULAR VOLUME 91 fL (79-100); MONO # 0.6 x10^3/uL (0.0-1.1); MONO % 7 % (0-9); NEUT # 4.2 x10^3uL (1.8-7.7); NEUT % 53 % (31-73); PLATELET COUNT 313 x10^3/uL (140-400); RED BLOOD COUNT 4.69 x10^6/uL (3.50-5.40); RED CELL DISTRIBUTION WIDTH 12.9 % (11.5-14.5); WHITE BLOOD COUNT 7.8 x10^3/uL (4.0-11.0)
[2019-06-20 09:35] LABS: ALBUMIN 3.3 g/dL (3.4-5.0); ALBUMIN/GLOBULIN RATIO 0.9 (1.0-1.7); CALCIUM 8.7 mg/dL (8.5-10.1); CREATININE 0.9 mg/dL (0.6-1.0); GFR 65.8; POTASSIUM 4.1 mmol/L (3.5-5.1); TOTAL BILIRUBIN 0.3 mg/dL (0.2-1.0); TOTAL PROTEIN 7.1 g/dL (6.4-8.2)
[2019-06-20 13:39] LABS: THYROID STIM HORMONE (TSH) 2.162 uIU/mL (0.358-3.740)
--- NOTE | 2019-06-20 15:00 | RAD ---
EXAM: Chest, 2 views. HISTORY: Palpitations. COMPARISON: 08/14/2018 FINDINGS: 2 views of the chest are obtained. There is no infiltrate, pleural effusion or pneumothorax. The heart is normal in size. IMPRESSION: No acute pulmonary finding. Electronically signed by: Tahira Song MD (06/20/2019 2:57 PM) [facility]
[2019-06-21 00:08] LABS: HEMOGLOBIN A1C 5.2 % (4.8-5.6)
== END | disposition home or self-care (01) ==
LOC: LAB 07:29
PROVIDERS: ATTEND Nurse Practitioner
DX: Z13.1 Encounter for screening for diabetes mellitus (principal); R00.2 Palpitations; I10 Essential (primary) hypertension
CPT/HCPCS: 36415; 71046; 80053; 80061; 83036; 83735; 84443; 85025; 93005

== ENCOUNTER → 2020-01-16 | Outpatient (CLI) | payer OTHER ==
[~2020-01-16] MED LIST changes: +MELA3TAB4 PO; -MELA3TAB56 PO; -OXYB10TA2 PO; +OXYB10TA26 PO
--- NOTE | 2020-01-16 15:45 | RAD ---
INDICATION: Pelvic pressure with history of hysterectomy COMPARISON: None. FINDINGS: Transabdominal ultrasound images obtained of the pelvis. Uterus and ovaries are not seen consistent with the patient's surgical history. Urinary bladder is partially distended with bilateral ureteral jets. A definite mass is not seen on focused ultrasound. IMPRESSION: * A definite mass is not seen within the pelvis on focused ultrasound. Electronically signed by: Addy Guallpa MD (01/16/2020 3:42 PM) [id number]
== END | disposition home or self-care (01) ==
LOC: US 14:28
PROVIDERS: ATTEND Obstetrics & Gynecology
DX: N32.89 Other specified disorders of bladder (principal); Z90.710 Acquired absence of both cervix and uterus
CPT/HCPCS: 76856

== ENCOUNTER → 2020-03-11 | Outpatient (CLI) | payer OTHER ==
[~2020-03-11] MED LIST changes: +IOHEXOL 240 MG/ML 50ML VIAL. ONE; +IOHEXOL 240 MG/ML 50ML VIAL. PO ONE; +IOHEXOL 300 MG/ML 75 ML VIAL. IV ONE
[2020-03-11 08:10] LABS: BASO # 0.1 x10^3/uL (0.0-0.2); BASO % 1 % (0-3); EOS # 0.1 x10^3/uL (0.0-0.7); EOS % 2 % (0-3); HEMATOCRIT 41.8 % (36.0-47.0); HEMOGLOBIN 14.1 g/dL (12.0-15.5); LYMPH # 2.8 x10^3/uL (1.0-4.8); LYMPH % 38 % (24-48); MEAN CORPUSCULAR HEMOGLOBIN 31 pg (25-35); MEAN CORPUSCULAR HGB CONC 34 g/dL (31-37); MEAN CORPUSCULAR VOLUME 91 fL (79-100); MONO # 0.5 x10^3/uL (0.0-1.1); MONO % 7 % (0-9); NEUT # 3.7 x10^3uL (1.8-7.7); NEUT % 52 % (31-73); PLATELET COUNT 306 x10^3/uL (140-400); RED BLOOD COUNT 4.62 x10^6/uL (3.50-5.40); RED CELL DISTRIBUTION WIDTH 12.9 % (11.5-14.5); WHITE BLOOD COUNT 7.2 x10^3/uL (4.0-11.0)
[2020-03-11 08:13] LABS: ALBUMIN 3.3 g/dL (3.4-5.0); ALBUMIN/GLOBULIN RATIO 0.9 (1.0-1.7); CALCIUM 8.5 mg/dL (8.5-10.1); GFR 58.2; TOTAL BILIRUBIN 0.4 mg/dL (0.2-1.0)
--- NOTE | 2020-03-11 09:42 | RAD ---
CT abdomen and pelvis with contrast History: Left lower quadrant and epigastric pain for one-month Technique: After the administration of intravenous contrast, CT imaging was performed of the abdomen and pelvis. Oral contrast was also given. Multiplanar images are reviewed. Exposure: One or more of the following individualized dose reduction techniques were utilized for this examination: 1. Automated exposure control 2. Adjustment of the mA and/or kV according to patient size 3. Use of iterative reconstruction technique. Comparison: August 28, 2018 Findings: There is no significant abnormality of the visualized lung bases. There is no significant abnormality of the liver, spleen, pancreas, adrenal glands. Both kidneys enhance without hydronephrosis. There is again 1.1 cm likely cyst of the mid to superior medial left kidney. There is again 1.5 cm hypodense lesion of the mid to superior right kidney, density measurements greater than a simple cyst 35 Hounsfield units, size stable to somewhat smaller. There is also a small hypodense lesion of the inferior right kidney too small to accurately characterize about 0.4 cm. There has been cholecystectomy. Bowel is not significantly dilated. There is no free fluid or free air. There is mild scattered diverticulosis of the distal descending colon and sigmoid colon, not associated with significant adjacent inflammatory-type change. Normal caliber appendix is visualized without adjacent inflammatory-type change. Urinary bladder is somewhat distended. There has been hysterectomy. Small inguinal lymph nodes are similar. Impression: 1. No significant acute abnormality is identified. There is colonic diverticulosis greatest of the sigmoid colon without convincing evidence of diverticulitis. 2. There is left renal cyst. There is again hypodense lesion of the right kidney with density measurements greater than a simple cyst, may be a somewhat complex cyst, size stable to somewhat smaller. Electronically signed by: Antonino Berrios MD (03/11/2020 9:39 AM) [id number]
== END ==
LOC: CT 07:20
PROVIDERS: ATTEND Nurse Practitioner
DX: K57.30 Diverticulosis of large intestine without perforation or abscess without bleeding (principal); N28.1 Cyst of kidney, acquired
CPT/HCPCS: 36415; 74177; 80053; 83690; 85025; Q9966; Q9967

== ENCOUNTER → 2020-12-10 | Outpatient (CLI) | payer OTHER ==
[~2020-12-10] MED LIST changes: -IOHEXOL 240 MG/ML 50ML VIAL. ONE; -IOHEXOL 240 MG/ML 50ML VIAL. PO ONE; -IOHEXOL 300 MG/ML 75 ML VIAL. IV ONE
[2020-12-10 08:25] LABS: BASO % 0 % (0-3); EOS % 0 % (0-3); HEMATOCRIT 41.7 % (36.0-47.0); HEMOGLOBIN 13.8 g/dL (12.0-15.5); LYMPH # 2.5 x10^3/uL (1.0-4.8); LYMPH % 13 % (24-48); MEAN CORPUSCULAR HEMOGLOBIN 30 pg (25-35); MEAN CORPUSCULAR HGB CONC 33 g/dL (31-37); MEAN CORPUSCULAR VOLUME 91 fL (79-100); MONO # 0.8 x10^3/uL (0.0-1.1); MONO % 4 % (0-9); NEUT # 16.1 x10^3uL (1.8-7.7); NEUT % 83 % (31-73); PLATELET COUNT 375 x10^3/uL (140-400); RED BLOOD COUNT 4.61 x10^6/uL (3.50-5.40); RED CELL DISTRIBUTION WIDTH 13.5 % (11.5-14.5); WHITE BLOOD COUNT 19.5 x10^3/uL (4.0-11.0)
[2020-12-10 08:34] LABS: ALBUMIN 3.3 g/dL (3.4-5.0); ALBUMIN/GLOBULIN RATIO 0.8 (1.0-1.7); CALCIUM 8.7 mg/dL (8.5-10.1); POTASSIUM 4.1 mmol/L (3.5-5.1); TOTAL BILIRUBIN 0.2 mg/dL (0.2-1.0); TOTAL PROTEIN 7.2 g/dL (6.4-8.2)
[2020-12-10 08:57] LABS: % LYMPHS 16 % (24-48); % MONOS 3 % (0-10); % SEGS 81 % (35-66); PLT ESTIMATE ADEQUATE (ADEQUATE)
[2020-12-10 18:51] LABS: THYROID STIM HORMONE (TSH) 1.197 uIU/mL (0.358-3.740)
[2020-12-11 00:13] LABS: HEMOGLOBIN A1C 5.5 % (4.8-5.6)
== END ==
LOC: LAB 07:30
PROVIDERS: ATTEND Nurse Practitioner
DX: Z00.00 Encounter for general adult medical examination without abnormal findings (principal); L60.8 Other nail disorders
CPT/HCPCS: 36415; 80053; 80061; 82728; 83036; 84443; 85007; 85025

== ENCOUNTER → 2021-02-07 | Outpatient (CLI) | payer OTHER ==
[~2021-02-07] MED LIST changes: -ACYC800T PO; +ACYC800T88 PO
[2021-02-07 08:55] LABS: BASO # 0.1 x10^3/uL (0.0-0.2); BASO % 1 % (0-3); EOS # 0.3 x10^3/uL (0.0-0.7); EOS % 3 % (0-3); HEMATOCRIT 39.7 % (36.0-47.0); HEMOGLOBIN 13.5 g/dL (12.0-15.5); LYMPH # 3.3 x10^3/uL (1.0-4.8); LYMPH % 35 % (24-48); MEAN CORPUSCULAR HEMOGLOBIN 31 pg (25-35); MEAN CORPUSCULAR HGB CONC 34 g/dL (31-37); MEAN CORPUSCULAR VOLUME 91 fL (79-100); MONO # 0.6 x10^3/uL (0.0-1.1); MONO % 6 % (0-9); NEUT # 5.1 x10^3uL (1.8-7.7); NEUT % 54 % (31-73); PLATELET COUNT 294 x10^3/uL (140-400); RED BLOOD COUNT 4.39 x10^6/uL (3.50-5.40); RED CELL DISTRIBUTION WIDTH 13.3 % (11.5-14.5); WHITE BLOOD COUNT 9.3 x10^3/uL (4.0-11.0)
== END ==
LOC: LAB 08:06
PROVIDERS: ATTEND Nurse Practitioner
DX: R79.89 Other specified abnormal findings of blood chemistry (principal)
CPT/HCPCS: 36415; 85025

== ENCOUNTER → 2021-04-18 | Outpatient (CLI) | payer OTHER ==
[~2021-04-18] MED LIST changes: -OMEP40CA45 PO; +OMEP40CA7 PO
--- NOTE | 2021-04-18 12:10 | RAD ---
EXAM: Bilateral digital screening mammogram with tomosynthesis. HISTORY: 55-year-old female presents for screening mammography. TECHNIQUE: Full-field digital craniocaudal and mediolateral oblique 2D and 3D tomosynthesis images of both breasts are obtained for evaluation. Computer aided detection was applied. COMPARISON: 12/12/2017 BREAST PARENCHYMAL DENSITY: Level B - Scattered fibroglandular densities. FINDINGS: There is no new suspicious mass, microcalcification or region of architectural distortion. There are stable prominent left axillary lymph nodes. The greater than 3 year course of stability fav ors benignity. IMPRESSION: BI-RADS Category 2: Benign finding(s). RECOMMENDATION: Annual mammography is recommended. If your mammogram demonstrates that you have dense breast tissue, which could hide abnormalities, and if you have other risk factors for breast cancer that have been identified, you might benefit from s upplemental screening tests that may be suggested by your ordering physician. Dense breast tissue, i n and of itself, is a relatively common condition. This information is not provided to cause undue c oncern, but rather to raise your awareness and to promote discussion with your physician regarding th e presence of other risk factors, in addition to dense breast tissue. A report of your mammography re sults will be sent to you and your physician. You should contact your physician if you have any ques tions or concerns regarding this report. Mammography is a sensitive method for finding small breast cancers, but it does not detect them all a nd is not a substitute for careful clinical examination. A negative mammogram does not negate a clin ically suspicious finding and should not result in delay in biopsying a clinically suspicious abnorma lity. PQRS compliance statement - Patient information was entered into a reminder system with a target due date for the next mammogram. "Our facility is accredited by the [employer] Mammography Program." Electronically signed by: Tahira Song MD (04/18/2021 12:08 PM) [id number]
== END ==
LOC: MAMMO 10:46
PROVIDERS: ATTEND Nurse Practitioner
DX: Z12.31 Encounter for screening mammogram for malignant neoplasm of breast (principal)
CPT/HCPCS: 77063; 77067

== ENCOUNTER → 2021-09-29 | Outpatient (CLI) | payer OTHER ==
[~2021-09-29] MED LIST changes: -ESTR2TAB PO; +ESTR2TAB3 PO
[2021-09-29 09:59] LABS: BASO # 0.1 x10^3/uL (0.0-0.2); BASO % 1 % (0-3); EOS # 0.2 x10^3/uL (0.0-0.7); EOS % 2 % (0-3); HEMOGLOBIN 13.9 g/dL (12.0-15.5); LYMPH # 3.4 x10^3/uL (1.0-4.8); LYMPH % 33 % (24-48); MEAN CORPUSCULAR HEMOGLOBIN 30 pg (25-35); MEAN CORPUSCULAR HGB CONC 33 g/dL (31-37); MEAN CORPUSCULAR VOLUME 90 fL (79-100); MONO # 0.6 x10^3/uL (0.0-1.1); MONO % 6 % (0-9); NEUT # 6.2 x10^3uL (1.8-7.7); NEUT % 59 % (31-73); PLATELET COUNT 301 x10^3/uL (140-400); RED BLOOD COUNT 4.66 x10^6/uL (3.50-5.40); RED CELL DISTRIBUTION WIDTH 13.2 % (11.5-14.5); WHITE BLOOD COUNT 10.6 x10^3/uL (4.0-11.0)
[2021-09-29 12:18] LABS: ALBUMIN 3.2 g/dL (3.4-5.0); CALCIUM 9.1 mg/dL (8.5-10.1); CREATININE 0.8 mg/dL (0.6-1.0); GFR 74.7; POTASSIUM 4.2 mmol/L (3.5-5.1); TOTAL BILIRUBIN 0.4 mg/dL (0.2-1.0); TOTAL PROTEIN 6.4 g/dL (6.4-8.2)
[2021-09-29 20:33] LABS: CHOLESTEROL/HDL RATIO 5.3; THYROID STIM HORMONE (TSH) 2.014 uIU/mL (0.358-3.740)
[2021-09-29 23:25] LABS: HEMOGLOBIN A1C 5.6 % (4.8-5.6)
== END ==
LOC: LAB 08:03
PROVIDERS: ATTEND Obstetrics & Gynecology
DX: N95.1 Menopausal and female climacteric states (principal); Z83.3 Family history of diabetes mellitus; Z68.32 Body mass index [BMI] 32.0-32.9, adult
CPT/HCPCS: 36415; 80053; 80061; 82607; 82652; 82670; 82746; 83036; 84443; 85025